=== PATIENT | male | born 1980 | race Caucasian/White ===

== ENCOUNTER → 2025-02-26 | Outpatient (CLI) | payer MEDICAID ==
--- NOTE | 2025-02-26 19:20 | MR ---
EXAMINATION TYPE: MR lumbar spine wo con DATE OF EXAM: 02/26/2025 5:46 PM COMPARISON: 10/25/2024. CLINICAL INDICATION: Male, 44 years old with history of M47.816 SPONDYLOSIS W/O MYELOPATHY; PHH, Low back pain that radiates down both legs. TECHNIQUE: Multi planar, multi sequence imaging was performed utilizing: T1-weighted, T2-weighted, a nd turbo inversion recovery imaging of the lumbar spine. IV Contrast: mL (None, if empty) FINDINGS: Alignment: The lumbar vertebral bodies have preserved heights and alignment. Cord: The conus medullaris and the distal spinal cord appear unremarkable with regards to their signa l intensity and morphology. Bones/Discs: Mild degeneration changes throughout the spine with osteophyte formation and facet joint arthropathy. Intervertebral disc signal is maintained. Reactive adjoining endplate edema at posterio r adjoining endplates of L4-L5 vertebral bodies. Stress reaction edema within the L4 and L5 pedicles. T12-L1: No evidence of significant spinal canal stenosis or neural foraminal stenosis. L1-L2: No evidence of significant spinal canal stenosis or neural foraminal stenosis. L2-L3: No evidence of significant spinal canal stenosis. Facet joint arthropathy moderate bilateral n eural foraminal stenosis. L3-L4: No evidence of significant spinal canal stenosis. Facet joint arthropathy moderate bilateral n eural foraminal stenosis. L4-L5: Central protrusion with moderate spinal canal stenosis/narrowing the ventral subarachnoid spac e. Moderate severe right and severe left neural foraminal stenosis. L5-S1: The disc has a rounded posterior morphology without significant spinal canal stenosis. Facet j oint arthropathy with mild bilateral neural foraminal stenosis. No significant spinal canal or neural foraminal stenosis in the remainder of the visualized levels. Other findings: None. IMPRESSION: 1. L4-L5 central dislocation with moderate spinal canal stenosis and severe left and moderate to sev ere right neural foraminal stenosis. Findings of this level are similar to prior on 10/25/2024 2. Mild to moderate disc degeneration with associated osteoarthritic changes. 3. Stress reaction edema within the L4 and L5 pedicles bilaterally.. [facility], , 02/26/2025 7:18 PM
--- NOTE | 2025-02-26 19:46 | CT ---
EXAMINATION TYPE: CT lumbar spine wo con DATE OF EXAM: 02/26/2025 4:42 PM COMPARISON: MRI same day. CLINICAL INDICATION: Male, 44 years old with history of M47.816 SPONDYLOSIS W/O MYELOPATHY, Lower rajat k pain. TECHNIQUE: Multiple axial images were obtained from the midportion of T11 through the sacroiliac shalonda nts. Soft tissue and bone windows in coronal and sagittal planes were obtained and reviewed. Contrast used: mL of , (None, if empty). Oral contrast used: (None, if empty). CT DLP: 858 mGycm, Automated exposure control for dose reduction was used. FINDINGS: Alignment: There are 5 lumbar type vertebral bodies with mild DEXA scoliosis apex L4.. Bone: Severe degeneration changes of the spine at L4-L5 with complete loss of disc space thickness an d endplate sclerosis. Discs: T12-L1: No spinal canal or neural foraminal stenosis is identified. L1-L2: No spinal canal or neural foraminal stenosis is identified. L2-L3: No evidence of significant spinal canal stenosis. Facet joint arthropathy moderate bilateral n eural foraminal stenosis. L3-L4: No evidence of significant spinal canal stenosis. Facet joint arthropathy moderate bilateral n eural foraminal stenosis. L4-L5: Facet joint arthropathy and disc bulging result in moderate spinal canal stenosis and moderate to severe right and severe left neural foraminal stenosis. L5-S1: Facet joint arthropathy result in mild spinal canal stenosis and mild bilateral neural foramin al stenosis. Other: Bilateral nonobstructing 5 mm calculi. Left partially obstructing ureteropelvic junction calcu edinson measuring 9 mm. Scattered colonic diverticulosis. IMPRESSION: 1. No evidence for spinal fracture. Moderate spinal canal stenosis at L4-L5 as seen on same day MRI. 2. Severe degeneration L4-L5 adjoining endplates as seen on same day MRI lumbar spine. 3. Mild left hydronephrosis secondary obstructing 9 mm calculus at the ureteropelvic junction. Addit ional mesenteric and bilateral renal calculi. 4. Colonic diverticulosis. [facility], , 02/26/2025 7:44 PM
== END | disposition home or self-care (01) ==
LOC: RADCTMAIN 16:13
PROVIDERS: ATTEND Orthopaedic Surgery
DX: M47.816 Spondylosis without myelopathy or radiculopathy, lumbar region (principal); M51.360 Other intervertebral disc degeneration, lumbar region with discogenic back pain only; M48.061 Spinal stenosis, lumbar region without neurogenic claudication; R60.0 Localized edema; N13.2 Hydronephrosis with renal and ureteral calculous obstruction; K57.30 Diverticulosis of large intestine without perforation or abscess without bleeding
CPT/HCPCS: 72131; 72148

== ENCOUNTER → 2025-05-02 | Outpatient (CLI) | payer MEDICAID | END | disposition home or self-care (01) | LOC: LABPAT 15:47 | PROVIDERS: ATTEND Orthopaedic Surgery | DX: Z01.812 Encounter for preprocedural laboratory examination (principal); Z22.322 Carrier or suspected carrier of Methicillin resistant Staphylococcus aureus; M48.062 Spinal stenosis, lumbar region with neurogenic claudication | CPT/HCPCS: 86850; 86900; 86901; 87070 ==

== ENCOUNTER 2025-05-07 07:30 | Inpatient (IN) | payer MEDICAID ==
[2025-05-03 17:45] VITALS: BMI 28.3
--- NOTE | 2025-05-07 06:52 | P.HPOR ---
History of Present Illness H&P Date: 05/02/25 .D:Date: 05/02/25 : 09:11am .T:Title: PRE OP HP Clinical Summary Brady Melendez is scheduled for an L3-5 posterolateral interbody fusion on 05/07/2025. He presents with severe pain, including sharp stabbing pain with walking and laying down, muscle spasms in his back, and radiating pain to his legs with bilateral numbness and tingling in his hips and thighs. Current medications include Lyrica, Gabapentin, and Beaver 7.5. His VAS pain score is 7. Physical examination reveals weakness in legs (4+/5 in bilateral lower extremities) and intact sensation with dermatomal deficits in L3-5, more pronounced on the left. Diagnosis includes L3-5 spondylosis with stenosis, lower extremity radiculopathy, lower extremity weakness, and low back pain. The planned procedure is an L3-5 posterolateral interbody fusion with decompression. MRSA screening and pre-operative clearance are in progress. SURGICAL RECOMMENDATION: L3-5 POSTEROLATERAL AND INTERBODY FUSION Chief Complaint Severe low back pain with lower extremity radiculopathy and weakness. 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 It was my pleasure to have seen and examined Brady Melendez. - In our visit today we have had a chance to go over subjective complaints, physical examination findings, and treatments including the natural course history without intervention and various interventional options. - The patient's imaging demonstrates the following findings: - L3-5 SPONDYLOSIS WITH STENOSIS, DISC COLLAPSE, SEVERE WITH FACET ARTHROSIS AND SEVERE DISC DISEASE. FLATTENED LL DUE TO THIS. NO FRACTURES OR LESIONS. - On a physical exam, Brady Melendez demonstrates the following findings: - Weakness in legs (4+/5 in bilateral lower extremities, all major muscle groups) - Intact sensation with dermatomal deficits in L3-5, more pronounced on the left than the right - Pain radiating into the buttock region and lower extremities I have explained to the patient that as their condition progresses it will cause further neurological deficits and eventual paralysis. Based on the patient's imaging, physical exam, and the rapid progression and disabling nature of their symptoms, at this time I recommend surgery in the form of an L3-5 posterolateral interbody fusion with decompression. I discussed the risk and benefits of this procedure at length with Brady Melendez. The patient has agreed to consider pursuing the procedure above mentioned. Prior to surgery, they should follow up with their PCP for clearance. Questions were invited and answered, and the patient wishes to proceed as outlined below. Recommendations 1. Proceed with L3-5 posterolateral interbody fusion with decompression on 05/07/2025. 2. Complete MRSA screening today. 3. Obtain pre-operative clearance and ensure it is placed in the patient's chart. 4. Continue current pain management regimen with Lyrica, Gabapentin, and Beaver 7.5 until surgery. 5. Follow up with primary care physician for surgical clearance. 6. Return for post-operative follow-up as scheduled. Risks Risks: All surgical procedures come with inherent risks, including those related to positioning, anesthesia, intraoperative findings, and postoperative complications. It is important to understand that surgery does not come with any guarantee of a successful outcome as complications and adverse events are always possible. The patient was given a handout in the office today discussing the surgical procedure and risks associated with the intervention, both of which were discussed with the patient. These risks include but are not limited to the following: - Experiencing same, different or even worse symptoms in back, neck, arms, or legs compared to before surgery. - Requiring further surgery or other forms of treatment presently or at some time in the future at same or other levels of the intended spine surgery. - On an extreme but fortunately relatively rare basis severe complications such as blindness, stroke, heart attack, temporary and/or permanent nerve injury, paralysis, coma, or may occur, sometimes without known explanation. - Surgical complications may include but are not limited to risk of infection, fluid accumulation in the surgical dissection site, including a seroma or hematoma, that requires additional surgery, wound drainage, bleeding, new numbness or weakness, vision changes/loss, spinal fluid leakage, non-healing and/or infected incision, headaches, difficulty or inability to swallow, hoarseness, hemopneumothorax, pneumothorax, impotence, retrograde ejaculation, vaginal dryness; injury to nerves, spinal cord, blood vessels, lymphatics or other vital organs (i.e., bowel injury, injury to the great vessels); heterotopic bone formation; complications related to the hardware such as screws , rods, cages including misplaced hardware, device failure, instrumentation at the wrong spine level, hardware fracture/breakage, or hardware loosening; vertebral failure of the spinal column above or below the newly placed hardware; retained surgical instrumentations or devices and the need for further surgery. - Medical risks of the planned spine surgery include but are not limited to generalized infections to the whole body or local areas outside of the surgical site (sepsis), heart attack, bleeding, anaphylaxis, meningitis, seizure, epilepsy, hearing loss, burn carrasquillo, laceration of the head or other areas of the body, bruising, hypersensitivity of the skin, bladder over distension; allergic reaction; shoulder injury related to positioning; fat, blood and air clots to other areas of the body like heart, lungs, brain; failure of internal organs such as lungs, kidneys, liver and excessive bleeding. If blood transfusions are necessary, note that transfusions may cause intolerance reactions such as anaphylaxis or other complex reactions. - Despite best efforts, the results of spine surgery might not heal in terms of bone, soft tissues such as skin, fascia, ligaments, and joints. Additionally, in order to achieve best possible results, spine surgery may be carried out beyond the initially planned levels and involve decompression, fusion including insertion of hardware at levels other than the original intended area of surgical interest change some portions of the procedure in order to ensure the best possible outcomes. - With spine surgery and spinal fusion, there are different off label uses of instrumentation (devices, implants and hardware) as well as biological substances (bone morphogenic proteins, demineralized bone matrix) as well as using extra bone from allograft sources (i.e. cadaver bone) or autograft (iliac crest bone, ribs, or the spine itself). The patient has been given information about these practices and their inherent risks and benefits. The patient has had a chance to review all the listed information, has been given print outs detailing this information, and has had all his/her questions answered to their satisfaction. It was my pleasure to have seen and examined Brady Melendez. In our visit today we have had a chance to go over my understanding of our patient's current condition, the natural course history without intervention and various interventional options. Questions were invited and answered, and the patient wishes to proceed as outlined above. I have seen and examined the patient for 25 minutes and we have spent more than 50% of the time in repeat and detailed counseling about the patient's condition, its natural course history without and as much as can be predicted with surgery and re-review of various surgical treatment options. In conclusion, Brady Melendez and their family requested we proceed with the above suggested surgery and are willing to accept risks and limitations of the suggested surgery as the nature of the disease process and our best attempts at treatment for the condition. Attestation In our visit today the patient and I have had a chance to go over my understanding of their current condition, the natural course history without intervention and various interventional options. Questions were invited and answered, and the patient wishes to proceed as outlined above. I will be sure to keep you updated after the patient returns here for further follow-up. Thank you again for your referral. Please do not hesitate to contact me if you have any further questions. Signed and authenticated by: DO Moe Almonte [facility] [address] [place] [id number] This document is confidential, intended only for the named recipient(s) and may contain information that is privileged or exempt from disclosure under applicable law. If you are not the intended recipient(s), you are notified that the dissemination, distribution or copying of this information is strictly prohibited. If you received this message in error, please notify the sender then delete this message. # SIGNED BY Salvatore Lagunas (GOO)05/04/2025 12:02PM Past Medical History Additional Past Medical History / Comment(s): BACK PAIN History of Any Multi-Drug Resistant Organisms: None Reported Additional Past Surgical History / Comment(s): DEVIATED SEPTUM X 2 Past Anesthesia/Blood Transfusion Reactions: No Reported Reaction Smoking Status: Former smoker - Past Family History Father Family Medical History: Deep Vein Thrombosis (DVT) Mother Family Medical History: Cancer Brother(s) Family Medical History: Cancer Medications and Allergies Home Medications Medication Instructions Recorded Confirmed Type Dextroamphetamine/Amphetamine 20 mg PO BID 05/03/25 05/03/25 History [Adderall Xr 20 mg Capsule] Dextroamphetamine/Amphetamine 10 mg PO DAILY@1400 05/03/25 05/03/25 History [Adderall] Escitalopram [Lexapro] 10 mg PO DAILY 05/03/25 05/03/25 History Hydrocodone/Acetaminophen 1 tab PO Q8H 05/03/25 05/03/25 History [Hydrocodone/Acetaminophen 7.5-325] Nicotine 14Mg/24Hr Patch [Habitrol 1 patch TRANSDERM DAILY 05/03/25 05/03/25 History 14Mg/24Hr Patch] Pregabalin [Lyrica] 100 mg PO TID 05/03/25 05/03/25 History Allergies Allergy/AdvReac Type Severity Reaction Status Date / Time No Known Allergies Allergy Verified 05/03/25 08:58 Physical Examination Osteopathic Statement: *. No significant issues noted on an osteopathic structural exam other than those noted in the History and Physical/Consult.
[~2025-05-07 07:30] MED LIST: LIDOCAINE 1% (10MG/ML) FOR IV START INTRADERMA PRN; TRANEXAMIC 1,000 MG/100ML-NACL 1,000 MG in SALINE 1 100ML.BAG IVPB PRN
[2025-05-07] MEDS: IV FLUID CONTINUATION 1,000 ML IV ONE ×3 (08:17→13:30)
[2025-05-07] MEDS: ONDANSETRON 4 MG/2 ML VIAL IVP PRN (08:23)
[2025-05-07] MEDS: GABAPENTIN 300 MG CAP PO PRN (08:23)
[2025-05-07] MEDS: LACTATED RINGERS 1,000 ML IV SCH (08:23)
[2025-05-07] MEDS: ACETAMINOPHEN TAB 500 MG TAB PO PRN (08:23)
[2025-05-07] MEDS: MIDAZOLAM 2 MG/2 ML VIAL IV ONE (08:29)
[2025-05-07] MEDS ORDERED: TRANEXAMIC 1,000 MG/100ML-NACL PREMIX BAG ONE (09:51)
[2025-05-07] MEDS ORDERED: NEOSTIGMINE 1 MG/ML 10 ML VIAL ONE (09:51)
[2025-05-07] MEDS ORDERED: MIDAZOLAM 2 MG/2 ML VIAL ONE (09:51)
[2025-05-07] MEDS ORDERED: KETAMINE HCL IN 0.9 % NACL 50 MG/5 ML SYRINGE ONE (09:51)
[2025-05-07] MEDS ORDERED: LIDOCAINE 1% INJ 10MG/ML (20 ML MDV) ONE (09:51)
[2025-05-07] MEDS ORDERED: GLYCOPYRROLATE 0.2 MG/ML 2 ML VIAL ONE (09:51)
[2025-05-07] MEDS ORDERED: SUCCINYLCHOLINE CHLORIDE 200 MG/10 ML VIAL IV ONE (09:51)
[2025-05-07] MEDS ORDERED: ROCURONIUM 10 MG/ML (5 ML VIAL) IV ONE (09:51)
[2025-05-07] MEDS ORDERED: fentaNYL (PF) 50 MCG/ML 2 ML AMP ONE (09:51)
[2025-05-07] MEDS ORDERED: PROPOFOL 10 MG/ML 20 ML VIAL IV ONE (09:51)
[2025-05-07] MEDS ORDERED: HYDROmorphone (PF) 1 MG/ML ONE (09:51)
[2025-05-07] MEDS: LACTATED RINGERS 1,000 ML IV ONE ×2 (10:13→11:43)
[2025-05-07] MEDS: THROMBIN (BOVINE) 5,000 UNIT VIAL TOPICAL ONE (10:14)
[2025-05-07] MEDS: VANCOMYCIN 1,000 MG VIAL MISCELLANE ONE (10:14)
--- NOTE | 2025-05-07 12:22 | XR ---
EXAMINATION TYPE: XR lumbar spine 2 or 3V, [place] guidance operating room Intraoperative/procedural fluor oscopic services were provided. CLINICAL INDICATION:Male, 44 years old with history of M48.062 LUMBAR STENOSIS; , PHH FINDINGS: Surgical changes from posterior lumbar fusion with bilateral pedicular screws and rods with intervert ebral disc fusion cages at L3-L5. Hardware appears intact with appropriate alignment on the fluorosco pic images. No radiographic evidence for complication. Total fluoroscopy time is 34.0 seconds. DAP: 10.411 Gycm2 Please see the operative/procedural note for further details. [facility], , 05/07/2025 12:20 PM
--- NOTE | 2025-05-07 12:26 | P.OP ---
Date of Procedure: 05/07/25 Preoperative Diagnosis: 1. L3-5 SPONDYLOSIS SEVERE 2. LUMBAR STENOSIS, SEVERE WITH NEUROGENIC CLAUDICATION 3. LUMBAR RADICULOPATHY BLE 4. BLE WEAKNESS 5. LOW BACK PAIN Postoperative Diagnosis: 1. L3-5 SPONDYLOSIS SEVERE 2. LUMBAR STENOSIS, SEVERE WITH NEUROGENIC CLAUDICATION 3. LUMBAR RADICULOPATHY BLE 4. BLE WEAKNESS 5. LOW BACK PAIN Procedure(s) Performed: 1. L3-4 POSTEROLATERAL AND INTERBODY FUSION 2. L4-5 POSTEROLATERAL AND INTERBODY FUSION 3. L3-5 SEGMENTAL INSTRUMENTATION 4. L3-4 AND L4-5 LAMINECTOMY, FACETECTOMY AND FORAMINOTOMY FOR COMPLETE NEURAL DECOMPRESSION, DEFORMITY CORRECTION AND CAGE PLACEMENT 5. INSERTION OF BIOMECHANICAL DEVICES CAGES x2 L3-4 AND L4-5 6. USE OF App Annie NAVIGATION FOR SCREW PLACEMENT USE OF IONM Implants: -AVELINA EVEREST RODS AND SCREWS -GLOBUS SABLE CAGES 10 MM 6-12MM LONG 8 DEG -AUTOGRAFT, CONTOUR, ALLOGRAFT, ARTHROCELL, ALLOCELL Anesthesia: DANNYA Surgeon: Salvatore Lagunas Housekeeping Associate #1: Dany Griffin (WAS PRESENT AND ASSISTED WITH ALL ASPECTS OF THE CASE FROM POSITION TO DRESSING PLACEMENT) Estimated Blood Loss (ml): 250 IV fluids (ml): 1,200 Urine output (ml): 250 Pathology: none sent Condition: stable Disposition: PACU Indications for Procedure: Brady Melendez is scheduled for an L3-5 posterolateral interbody fusion on 05/07/2025. He presents with severe pain, including sharp stabbing pain with walking and laying down, muscle spasms in his back, and radiating pain to his legs with bilateral numbness and tingling in his hips and thighs. Current medications include Lyrica, Gabapentin, and [place]ville 7.5. His VAS pain score is 7. Physical examination reveals weakness in legs (4+/5 in bilateral lower extremities) and intact sensation with dermatomal deficits in L3-5, more pronounced on the left. Diagnosis includes L3-5 spondylosis with stenosis, lower extremity radiculopathy, lower extremity weakness, and low back pain. The planned procedure is an L3-5 posterolateral interbody fusion with decompression. MRSA screening and pre-operative clearance are in progress. SURGICAL RECOMMENDATION: L3-5 POSTEROLATERAL AND INTERBODY FUSION Description of Procedure: L3-5 OPEN PLIBF The patient was seen and examined in the preoperative area. All preoperative protocols were followed. Informed consent was obtained, risks and benefits of the procedure were discussed at length. Risks including bleeding infection damage to the surrounding tissue and risk of reoperation were discussed with the patient. Risk of anesthesia up to and including was discussed with the patient. These are outlined in the risk review. They were willing to accept these risks and all the risks of surgery. The patient was given a weight-based dose of antibiotics in the form of 2 g Ancef. The patient was seen and evaluated by the anesthesia team who deemed them fit for surgery. The site was marked, the patient was willing to proceed with the procedure. The patient was transferred to the operative suite by the Department of anesthesia. They were then drifted off to sleep by the department anesthesia and GETA was performed. The patient tolerated this well. Eli catheter was placed by nursing staff, a-traumatically. Once confirmation of lines and ventilation the patient was transferred to a prone Demond table very carefully. All bony prominences including wrists, elbows, axilla, chest, hips, and thighs, and feet were padded very well. Special attention was paid to the genitalia, and these were padded accordingly. SCDs were placed on bilateral lower extremities and were connected. Arms were well padded and placed on arm boards up and out in the 90/90 position. Once in position, again we confirmed good ventilation capabilities and that lines were running appropriately. The patients Lumbar spine was then exposed. 1010s were placed outlining the incision site. Standard alcohol was used to clean the incision site and allowed to dry. C-arm was used to needle localize the pedicles at L3-5 and bio-jenni the patient and confirm level for incision which was marked with a skin marker. Operative briefing was performed with all teams and everyone in agreement to proceed. The patient was then prepped and draped in a normal sterile fashion. Timeout was then performed, and all parties agreed with the procedure to be performed. Midline skin incision was made over the previously bio-marked area and dissection taken down over the SP of L2-5. L3-4 AND L4-5 were taken out over facet joints and TPs and a penfield 4 used to jenni the L3 pedicle. Lateral image used to confirm levels. Once confirmed, screws were placed b/l at pedicles from L3-5 using Avelina navigation. Navigated Starr was used to create a forestry pilot hole, navigated awl-tap then a ball tip feeler to confirm within the pedicles. Navigated Screw was measured and placed. Once screws were placed they were confirmed to be in good position using AP and Lateral fluoroscopy. The wound was then irrigated. Screws were tested and all tested above 20 mA. We then proceeded to decompression and cage placement. Attention was then turned to interbody fusion at L4-5. Bilateral laminectomy, complete facetectomy and foraminotomy performed at L4-5 using high speed jane and Kerrison rongeur. The ligamentum was removed and the dural sac decompressed. Exiting and traversing roots visualized and decompressed. Neural elements were then protected, and disc space accessed with an osteotome. Sequential shaving then done under lateral imaging and complete discectomy per formed using rubina, pituitary and curette. Once good bleeding endplates accomplished and good height synagogue with trials, a combination of autograft, allograft and synthetic placed anterior in the disc space. The cages were then selected and impacted into place under lateral imaging bilaterally. The cages were then expanded sequentially, restoring height, lordosis and alignment. The cages were then backfilled with bone graft through a funnel. The fisher purse seine was removed and the area inspected. Good cage placement, stable cage and no injuries. The area was irrigated copiously, and meticulous hemostasis achieved. Attention was then turned to interbody fusion at L3-4. Bilateral laminectomy, complete facetectomy and foraminotomy performed at L3-4 using high speed jane and Kerrison rongeur. The ligamentum was removed and the dural sac decompressed. Exiting and traversing roots visualized and decompressed. Disc herniation was identified as extraforaminal and removed. Neural elements were then protected, and disc space accessed with an osteotome. Sequential shaving then done under lateral imaging and complete discectomy performed using rubina, pituitary and curette. Once good bleeding endplates accomplished and good height synagogue with trials, a combination of autograft, allograft and synthetic placed anterior in the disc space. The cages were then selected and impacted into place under lateral imaging bilaterally. The cages were then expanded sequentially, restoring height, lordosis and alignment. The cages were then backfilled with bone graft through a funnel. The fisher purse seine was removed and the area inspected. Good cage placement, stable cage and no injuries. The area was irrigated copiously, and meticulous hemostasis achieved. Rods were then sized and selected and placed into L5 screws b/l. Set screws locked these in place and then sequentially reduced into L4 and L3 b/l for reduction. This was accomplished. Set screws were then all placed and final tightened. TPs were then decorticated with a high speed jane. The wound was irrigated with 3L Ancef irrigation, 3L gentamicin irrigation and 3L NSS. Betadine and Irricept. Surgicel was placed over the dura. Autograft and Ventris then placed in the posterolateral gutters and impacted into place. no drain needed. 2 g Vancomycin powder placed in the wound bed. Final images confirmed good placement of hardware and good reduction of listhesis as well as synagogue of height and lordosis. Facia was then closed with #1 PDS.. Deep subq closed with 0 Vicryl. Superficial subq closed with 2-0 Vicryl and skin with skin enio. Wound edges approximated very well. The wound was then cleaned with alcohol and dried. Wounds dressed with Optifoam dressings. The patient was then transferred off the table back to their hospital bed a- traumatically. They were extubated by the department of anesthesia. They were then transferred to PACU in stable condition having tolerated the procedure with no complications.
[2025-05-07] MEDS ORDERED: ONDANSETRON 4 MG/2 ML VIAL IVP PRN (12:38)
[2025-05-07] MEDS ORDERED: MAGNESIUM HYDROXIDE 2,400 MG/30 ML CUP PO PRN (12:38)
[2025-05-07] MEDS ORDERED: HYDROmorphone 0.5 MG/0.5 ML SYRINGE IVP PRN (12:38)
[2025-05-07] MEDS ORDERED: SENNOSIDES-DOCUSATE SODIUM 1 EACH TAB PO PRN (12:38)
[2025-05-07] MEDS: HYDROmorphone 0.5 MG/0.5 ML SYRINGE IVP PRN (13:09)
[2025-05-07] MEDS: MEPERIDINE 50 MG/ML SYRINGE IVP STA ×2 (13:32→13:42)
[2025-05-07] MEDS ORDERED: MORPHINE SULFATE 2 MG/ML SYRINGE IV PRN (16:12)
[2025-05-07] MEDS: MORPHINE SULFATE 4 MG/ML SYRINGE IM STA (16:24)
[2025-05-07] MEDS: MORPHINE SULFATE 4 MG/ML SYRINGE IVP STA (16:29)
[2025-05-07] MEDS: MORPHINE SULFATE 2 MG/ML SYRINGE IM STA (16:50)
[2025-05-07] MEDS: MORPHINE SULFATE 2 MG/ML SYRINGE IVP STA (16:50)
[2025-05-07] MEDS: oxyCODONE-APAP 5-325MG 1 EACH TAB PO PRN (17:02)
[2025-05-07] MEDS: PREGABALIN 100 MG CAP PO SCH (17:07)
--- NOTE | 2025-05-07 17:43 | P.CONS ---
History of Present Illness - Reason for Consult Consult date: 05/07/25 - History of Present Illness Patient is a 44-year-old male with past medical history of ADHD, fibromyalgia, CARLENE on CPAP, Sjogren's, severe lower back pain with lower extremity radiculopathy due to L3 L5 spondylosis with stenosis, disc collapse, severe facet arthrosis, who presented for elective L3 L5 fusion that was performed on 05/07/2025, EBL 250 cc, sound physicians consulted for medical management. Patient was seen and examined after surgery, family at bedside, patient is in pain, no other new complaints, received dose of Dilaudid Vital signs showed normal heart rate in 60s, normotensive 114/78, on room air. No blood work available for review Pertinent positives and negatives as discussed in HPI, a complete review of systems was performed and all other systems are negative. Patient seen and examined at bedside. Vital signs reviewed General: nontoxic, no distress, appears at stated age Derm: warm, dry Head: atraumatic, normocephalic, symmetric Eyes: EOMI, no lid lag, anicteric sclera, pupils equal round reactive to light ENT: Nose and ears atraumatic Neck: No thyromegaly, supple Mouth: no lip lesion, mucus membranes moist Cardiovascular: S1S2 reg, no murmur, no edema Lungs: clear to auscultation bilateral, no rhonchi, no rales, no wheeze, no accessory muscle use Abdominal: soft, nontender to palpation, no guarding, no appreciable organomegaly Ext: no gross muscle atrophy, unable to assess muscle strength due to distress from pain, no contractures, Neuro: CN II-XII grossly intact Psych: Alert, oriented, appropriate affect Assessment/Plan: ADHD: Can continue Adderall 10 mg daily and Adderall 20 mg p.o. twice daily starting tomorrow, continue Lexapro 10 fibromyalgia: Continue Lexapro as above, Lyrica 100 p.o. 3 times daily CARLENE on CPAP: Continue CPAP severe lower back pain with lower extremity radiculopathy due to L3 L5 spondylosis with stenosis, disc collapse, severe facet arthrosis, s/pelective L3 L5 fusion that was performed on 05/07/2025 - Your postop management, pain management, VTE prophylaxis, bowel regimen, PT OT, incentive telemetry - CBC and BMP ordered by primary team Past Medical History Additional Past Medical History / Comment(s): BACK PAIN History of Any Multi-Drug Resistant Organisms: None Reported Additional Past Surgical History / Comment(s): DEVIATED SEPTUM X 2 Past Anesthesia/Blood Transfusion Reactions: No Reported Reaction Smoking Status: Former smoker - Past Family History Father Family Medical History: Deep Vein Thrombosis (DVT) Mother Family Medical History: Cancer Brother(s) Family Medical History: Cancer Medications and Allergies Home Medications Medication Instructions Recorded Confirmed Type Dextroamphetamine/Amphetamine 20 mg PO BID 05/03/25 05/07/25 History [Adderall Xr 20 mg Capsule] Dextroamphetamine/Amphetamine 10 mg PO DAILY@1400 05/03/25 05/07/25 History [Adderall] Escitalopram [Lexapro] 10 mg PO DAILY 05/03/25 05/07/25 History Hydrocodone/Acetaminophen 1 tab PO Q8H 05/03/25 05/07/25 History [Hydrocodone/Acetaminophen 7.5-325] Nicotine 14Mg/24Hr Patch [Habitrol 1 patch TRANSDERM DAILY 05/03/25 05/07/25 History 14Mg/24Hr Patch] Pregabalin [Lyrica] 100 mg PO TID 05/03/25 05/07/25 History Allergies Allergy/AdvReac Type Severity Reaction Status Date / Time No Known Allergies Allergy Verified 05/07/25 07:50 Physical Exam Vitals: Vital Signs Temp Pulse Resp BP Pulse Ox 05/07/25 17:24 98.1 F 58 L 18 118/72 98 05/07/25 16:25 66 18 121/66 97 05/07/25 15:55 69 16 114/78 98 05/07/25 15:25 64 12 110/68 96 05/07/25 14:55 81 18 125/75 99 05/07/25 14:25 65 15 128/68 96 05/07/25 14:10 63 13 145/92 94 L 05/07/25 13:55 64 12 145/87 94 L 05/07/25 13:40 63 16 170/76 95 05/07/25 13:25 67 22 165/101 99 05/07/25 13:10 70 22 154/85 100 05/07/25 12:55 68 18 131/74 99 05/07/25 12:40 96.5 F L 84 12 139/80 100 05/07/25 08:41 68 14 127/79 97 05/07/25 08:10 97.5 F L 76 16 112/90 99 Intake and Output 05/07/25 05/07/25 05/07/25 06:59 14:59 22:59 Intake Total 3750 Output Total 500 700 Balance 3250 -700 Intake: IV 3750 Output: Urine 250 700 Estimated Blood Loss 250 Other: Voiding Method Indwelling Catheter Weight 95.6 kg
[2025-05-07] MEDS: HYDROmorphone 1 MG/ML 1 ML SYRINGE IVP PRN (18:16)
[2025-05-07] MEDS: ACETAMINOPHEN TAB 325 MG TAB PO SCH (18:41)
[2025-05-07] MEDS: HYDROcodone/APAP 7.5-325MG 1 EACH TAB PO PRN (19:24)
[2025-05-07] MEDS: NICOTINE 21MG/24HR PATCH TRANSDERM SCH (21:20)
[2025-05-08] MEDS: CYCLOBENZAPRINE 5 MG TAB PO PRN (05:09)
--- NOTE | 2025-05-08 06:22 | CT ---
EXAMINATION TYPE: CT lumbar spine wo con DATE OF EXAM: 05/07/2025 11:48 PM COMPARISON: 02/26/2025. CLINICAL INDICATION: Male, 44 years old with history of s/p L3-L5 PLIF; [facility], s/p L3-L5 PLIF TECHNIQUE: Multiple axial images were obtained from the midportion of T11 through the sacroiliac shalonda nts. Soft tissue and bone windows in coronal and sagittal planes were obtained and reviewed. Contrast used: mL of , (None, if empty). Oral contrast used: (None, if empty). CT DLP: 1547.9 mGycm, Automated exposure control for dose reduction was used. FINDINGS: Postsurgical changes to the lumbar spine with fixation hardware at L3-L5. Discectomy at L3-L4 and L4- L5 . Hardware limits evaluation at these levels. Hardware appears intact. No evidence of fracture. Sc attered pneumorachis is noted. Left laminectomy changes are seen at these levels. Postsurgical changes in the soft tissues with foci of gas present. Drainage catheter with tubing in t he surgical bed. Posterior back skin enio are present. Scattered colonic diverticula. Eli catheter partially visualized and the bladder lumen. Left renal pelvis calculus measuring 8 mm. Scattered other renal calculi bilaterally measuring up to 4 mm. IMPRESSION: Postsurgical changes without evidence of immediate post operative complication. [facility], , 05/08/2025 6:20 AM
[2025-05-08 07:15] LABS: Basophils # (A) 0.03 X 10*3/uL (0.00-0.10); Basophils % (A) 0.2 %; Eosinophils # (A) 0.02 X 10*3/uL (0.04-0.35); Eosinophils % (A) 0.1 %; HCT 40.3 % (39.6-50.0); HGB 13.7 g/dL (13.0-17.0); Immature Grans, Automated 0.40 %; Lymphocytes # (A) 1.12 X 10*3/uL (0.90-5.00); Lymphocytes % (A) 7.8 %; MCH 31.3 pg (27.0-32.0); MCHC 34.0 g/dL (32.0-37.0); MCV 92.0 FL (80.0-97.0); Monocytes # (A) 1.06 X 10*3/uL (0.20-1.00); Monocytes % (A) 7.4 %; NRBC Per 100 WBC 0 X 10*3/uL (0.00-0.01); Neutrophils # (A) 11.98 X 10*3/uL (1.80-7.70); Neutrophils % (A) 84.1 %; Platelet Count 335 X 10*3/uL (140-440); RBC 4.38 X 10*6/uL (4.40-5.60); RDW 12.6 % (11.5-14.5); WBC 14.27 X 10*3/uL (4.50-10.00)
[2025-05-08] MEDS: DEXTROAMPHETAMINE PO SCH (07:40)
[2025-05-08] MEDS: AMPHETAMINE PO SCH (07:40)
[2025-05-08] MEDS: CYCLOBENZAPRINE 5 MG TAB PO SCH (07:45)
[2025-05-08] MEDS: HYDROcodone/APAP 10-325MG 1 EACH TAB PO SCH (07:45)
[2025-05-08] MEDS: ESCITALOPRAM 10 MG TAB PO SCH (07:45)
[2025-05-08 07:56] LABS: Anion Gap 13.00 mmol/L (4.00-12.00); BUN/Creat Ratio 11.14 Ratio (12.00-20.00); Blood Urea Nitrogen 7.8 mg/dL (9.0-27.0); Calcium 8.8 mg/dL (8.7-10.3); Carbon Dioxide 24.0 mmol/L (21.6-31.8); Chloride 102 mmol/L (96-109); Glucose 111 mg/dL (70-110); Potassium 4.2 mmol/L (3.5-5.5); Sodium 139 mmol/L (135-145)
[2025-05-08] MEDS: KETOROLAC 15 MG/ML 1 ML VIAL IVP SCH (08:04)
[2025-05-08] MEDS: SENNOSIDES-DOCUSATE SODIUM 1 EACH TAB PO SCH (08:05)
[2025-05-08] MEDS: DEXAMETHASONE SOD PHOSPHATE 10 MG/ML 1 ML VIAL IVP STA (08:05)
--- NOTE | 2025-05-08 08:41 | P.PN ---
Subjective Progress Note Date: 05/08/25 Principal diagnosis: 1. L3-L5 severe spondylosis 2. Severe lumbar stenosis with neurogenic claudication 3. Bilateral lower extremity radiculopathy with weakness 4. Mechanical low back pain Patient seen and examined this morning. Patient is in distress and crying out while laying in bed. Spouse is at bedside. Patient spouse reports that patient has been in severe pain throughout the night. Attempted physical exam, patient unable to perform due to pain and back spasms. Informed patient and spouse that medications will be adjusted. Surgical dressing to the lumbar spine, clean dry and intact. Informed patient that once we are able to get his pain under contro l that physical therapy will begin to work with him later today. Continue to encourage patient to increase his activity as tolerated and utilize incentive spirometer 10 times per hour while awake. Objective - Vital Signs Vital signs: Vital Signs Temp 98.4 F 05/08/25 01:18 Pulse 81 05/08/25 01:18 Resp 17 05/08/25 01:18 BP 135/80 05/08/25 01:18 Pulse Ox 97 05/08/25 01:18 FiO2 Intake & Output 05/07/25 05/08/25 05/08/25 18:59 06:59 18:59 Intake Total 3750 Output Total 1200 1175 Balance 2550 -1175 Weight 95.6 kg Intake: IV 3750 Output: Urine 950 1175 Estimated Blood Loss 250 Other: Voiding Method Indwelling Catheter Indwelling Catheter - Exam Physical Examination General: The patient is awake and alert, in acute distress due to pain. Skin: Skin is warm and dry with no obvious rashes or lesions. Surgical incision to the lumbar spine, dressing is clean dry and intact. Eye: Pupils are equal, round and reactive to light, extra-ocular movements are intact; there is normal conjunctiva bilaterally. Neck: The neck is supple, there is no tenderness and ROM intact. Respiratory: Respirations are non-labored. Gastrointestinal: Soft, non-distended, non-tender abdomen. Back: There is tenderness around the incision site. Musculoskeletal: ROM limited secondary to pain and stiffness from surgical procedure. Neurological: CN 2-12 intact. There are no obvious motor or sensory deficits. Movement and coordination equal and intact. Sensory exam to light touch intact C5-T1 and intact from L2-S1. Reflexes 2/4 in bilateral upper and lower extremities. Negative Hoffmans, babinski, and clonus signs. Psychiatric: Cooperative, appropriate mood & affect, normal judgment. - Labs CBC & Chem 7: 05/08/25 03:53 05/08/25 03:53 Labs: Abnormal Lab Results - Last 24 Hours (Table) 05/08/25 05/08/25 Range/Units 03:53 03:53 WBC 14.27 H (4.50-10.00) X 10*3/uL RBC 4.38 L (4.40-5.60) X 10*6/uL Immature Gran # 0.06 H (0.00-0.04) X 10*3/uL Neutrophils # 11.98 H (1.80-7.70) X 10*3/uL Monocytes # 1.06 H (0.20-1.00) X 10*3/uL Eosinophils # 0.02 L (0.04-0.35) X 10*3/uL Anion Gap 13.00 H (4.00-12.00) mmol/L BUN 7.8 L (9.0-27.0) mg/dL BUN/Creatinine Ratio 11.14 L (12.00-20.00) Ratio Glucose 111 H (70-110) mg/dL Assessment and Plan Assessment: Postop day 1: L3-L5 open posterolateral interbody fusion Plan: -Appreciate internet sales consultant and team management. -Activity: Ambulate QID, OOB all meals, up and about, limit lifting bending twisting to less than 5 lbs. Use walker or cane if needed for stability. -Daily PT/OT, increase ambulation strength and balance. -Brace when up and about, not needed in bed or chair -Pain control: Medications have been adjusted. -Meds: reviewed -GI ppx: senna, Miralax -DC horne when up and about, bedside commode if needed -DVT PPX: SCDs TEDS -Hygiene: Maintain incision clean and dry. May change dressing as needed, please document in notes if performed. Meticulous cleaning after BMs away from the incision site -Encourage IS 10x/hr -Dispo: Anticipate discharge home within the next 48hrs. *I reviewed and discussed this case with my attending Dr. Lagunas, whom has reviewed this chart and films and is in agreement with assessment and plan of care as outlined above. I have personally seen and examined the patient, performed the documentation and the assessment and plan as written. Number of minutes spent on the visit: 20m.
[2025-05-08] MEDS ORDERED: PREGABALIN 100 MG CAP PO SCH (09:00)
[2025-05-08] MEDS: PATIENT'S OWN (Dextroamphetamine/Amphetamine [Adderall] 10 MG Tablet) PO SCH (13:30)
--- NOTE | 2025-05-08 16:03 | P.PN ---
Subjective Progress Note Date: 05/08/25 Patient is a 44-year-old male with past medical history of ADHD, fibromyalgia, CARLENE on CPAP, Sjogren's, severe lower back pain with lower extremity radiculopathy due to L3 L5 spondylosis with stenosis, disc collapse, severe facet arthrosis, who presented for elective L3 L5 fusion that was performed on 05/07/2025, EBL 250 cc, sound physicians consulted for medical management. 05/08: Seen and examined at bedside, patient significant other at bedside. Patient appears to be in distress, complains of sharp constant abdominal pain in and right-sided abdomen but mostly lower abdomen, feeling like there is full and he cannot empty it, he was earlier bladder scan did not show no urine retention, he has Eli catheter in that drains clear light yellow urine. His abdomen is soft on exam, he has active bowel sounds, he tolerated breakfast without nausea or vomiting. No bowel movements yet. Vitals are unremarkable including temperature, BP, heart rate. Morning blood work showed leukocytosis 14.2, likely reactive after surgery, normal hemoglobin, normal sodium potassium, creatinine. I offered abdominal x-ray, patient currently declined as he does not want to be moved. Tablet discussed with RN, IM team to be notified should his symptoms be worsening. I recommended to recheck bladder scan and communicated with RN. Pertinent positives and negatives as discussed in HPI, a complete review of systems was performed and all other systems are negative. Patient seen and examined at bedside. Vital signs reviewed General: nontoxic, no distress, appears at stated age Derm: warm, dry Head: atraumatic, normocephalic, symmetric Eyes: EOMI, no lid lag, anicteric sclera, pupils equal round reactive to light ENT: Nose and ears atraumatic Neck: No thyromegaly, supple Mouth: no lip lesion, mucus membranes moist Cardiovascular: S1S2 reg, no murmur, no edema Lungs: clear to auscultation bilateral, no rhonchi, no rales, no wheeze, no accessory muscle use Abdominal: soft, right-sided tenderness, suprapubic tenderness, no guarding, no appreciable organomegaly Ext: no gross muscle atrophy, unable to assess muscle strength due to distress from pain, no contractures, Neuro: CN II-XII grossly intact Psych: Alert, oriented, appropriate affect Assessment/Plan: Abdominal pain -Abdominal exam as above, abdominal x-ray declined, repeat bladder scan, recommend to take Eli catheter out and use urinal instead -Notify internal medicine team for worsening symptoms -Continue bowel regimen and pain management per primary team, increase activity per primary team. Of note, patient was able to state and stand up today but physical therapy. ADHD: Can continue Adderall 10 mg daily and Adderall 20 mg p.o. twice daily starting tomorrow, continue Lexapro 10 fibromyalgia: Continue Lexapro as above, Lyrica 100 p.o. 3 times daily CARLENE on CPAP: Continue CPAP severe lower back pain with lower extremity radiculopathy due to L3 L5 spondylosis with stenosis, disc collapse, severe facet arthrosis, s/pelective L3 L5 fusion that was performed on 05/07/2025 - Your postop management, pain management, VTE prophylaxis, bowel regimen, PT OT, incentive telemetry - CBC and BMP ordered by primary team Objective - Vital Signs Vital signs: Vital Signs Temp 98.0 F 05/08/25 14:00 Pulse 70 05/08/25 14:00 Resp 16 05/08/25 14:00 BP 121/73 05/08/25 14:00 Pulse Ox 96 05/08/25 14:00 FiO2 Intake & Output 05/07/25 05/08/25 05/08/25 18:59 06:59 18:59 Intake Total 3750 200 Output Total 1200 1175 Balance 2550 -1175 200 Weight 95.6 kg Intake: IV 3750 Oral 200 Output: Urine 950 1175 Estimated Blood Loss 250 Other: Voiding Method Indwelling Catheter Indwelling Catheter Indwelling Catheter - Labs CBC & Chem 7: 05/08/25 03:53 05/08/25 03:53 Labs: Abnormal Lab Results - Last 24 Hours (Table) 05/08/25 05/08/25 Range/Units 03:53 03:53 WBC 14.27 H (4.50-10.00) X 10*3/uL RBC 4.38 L (4.40-5.60) X 10*6/uL Immature Gran # 0.06 H (0.00-0.04) X 10*3/uL Neutrophils # 11.98 H (1.80-7.70) X 10*3/uL Monocytes # 1.06 H (0.20-1.00) X 10*3/uL Eosinophils # 0.02 L (0.04-0.35) X 10*3/uL Anion Gap 13.00 H (4.00-12.00) mmol/L BUN 7.8 L (9.0-27.0) mg/dL BUN/Creatinine Ratio 11.14 L (12.00-20.00) Ratio Glucose 111 H (70-110) mg/dL
[2025-05-09 09:12] LABS: Basophils # (A) 0.02 10*3/uL (0.00-0.10); Basophils % (A) 0.1 %; Eosinophils # (A) 0.07 10*3/uL (0.04-0.35); Eosinophils % (A) 0.4 %; HCT 35.9 % (39.6-50.0); HGB 12.5 g/dL (13.0-17.0); Lymphocytes # (A) 2.27 10*3/uL (0.90-5.00); Lymphocytes % (A) 14.1 %; MCH 32.3 pg (27.0-32.0); MCHC 34.8 g/dL (32.0-37.0); MCV 92.8 fL (80.0-97.0); Monocytes # (A) 1.44 10*3/uL (0.20-1.00); Monocytes % (A) 8.9 %; Neutrophils # (A) 12.26 10*3/uL (1.80-7.70); Neutrophils % (A) 76.0 %; Platelet Count 309 10*3/uL (140-440); RBC 3.87 10*6/uL (4.40-5.60); RDW 12.6 % (11.5-14.5); WBC 16.14 10*3/uL (4.50-10.00)
[2025-05-09 09:33] LABS: African American GFR (CKD) >90 (>60 ml/min/1.73 sqM); Anion Gap 9 mmol/L; Blood Urea Nitrogen 13 mg/dL (9-20); Calcium 9.1 mg/dL (8.4-10.2); Carbon Dioxide 25 mmol/L (22-30); Chloride 103 mmol/L (98-107); Glucose 116 mg/dL (74-99); Non-African American GFR(CKD) >90 (>60 ml/min/1.73 sqM); Potassium 3.9 mmol/L (3.5-5.1); Sodium 137 mmol/L (137-145)
[2025-05-09] MEDS: LIDOCAINE 4% PATCH TOPICAL SCH (10:00)
--- NOTE | 2025-05-09 11:55 | P.PN ---
Subjective Progress Note Date: 05/09/25 Principal diagnosis: 1. L3-L5 severe spondylosis 2. Severe lumbar stenosis with neurogenic claudication 3. Bilateral lower extremity radiculopathy with weakness 4. Mechanical low back pain Patient seen and examined this morning. Patient is resting comfortably in bed. Patient states he did stand with physical therapy yesterday and tolerated activity well. He states that his pain is better managed on current regimen. Educated patient to use IV medication sparingly to assess what oral medications will manage his pain at home. Patient verbalizes understanding. Surgical incision to the lumbar spine, edges are well-approximated with enio intact. New dressing has been applied. Informed patient that physical therapy will be in to work with him today, patient does not need LSO brace to work with physical therapy. Prescription for a rolling walker and LSO brace has been placed in chart. Patient may possibly be discharged later today if his pain is contr olled. Objective - Vital Signs Vital signs: Vital Signs Temp 97.4 F L 05/09/25 07:32 Pulse 79 05/09/25 07:32 Resp 16 05/09/25 07:32 BP 113/65 05/09/25 07:32 Pulse Ox 96 05/09/25 07:32 FiO2 Intake & Output 05/08/25 05/09/25 05/09/25 18:59 06:59 18:59 Intake Total 200 Output Total 1200 300 105 Balance -1000 -300 -105 Intake: Oral 200 Output: Urine 1200 300 105 Uretheral (Horne) 105 Other: Voiding Method Indwelling Catheter Indwelling Catheter - Exam Physical Examination General: The patient is awake and alert, in acute distress due to pain. Skin: Skin is warm and dry with no obvious rashes or lesions. Surgical incision to the lumbar spine, edges are well-approximated with enio intact. New dressing has been applied. Eye: Pupils are equal, round and reactive to light, extra-ocular movements are intact; there is normal conjunctiva bilaterally. Neck: The neck is supple, there is no tenderness and ROM intact. Respiratory: Respirations are non-labored. Gastrointestinal: Soft, non-distended, non-tender abdomen. Back: There is tenderness around the incision site. Musculoskeletal: ROM limited secondary to pain and stiffness from surgical procedure. Neurological: CN 2-12 intact. There are no obvious motor or sensory deficits. Movement and coordination equal and intact. Sensory exam to light touch intact C5-T1 and intact from L2-S1. Reflexes 2/4 in bilateral upper and lower extremities. Negative Hoffmans, babinski, and clonus signs. Psychiatric: Cooperative, appropriate mood & affect, normal judgment. - Labs CBC & Chem 7: 05/09/25 08:48 05/09/25 08:48 Assessment and Plan Assessment: Postop day 2: L3-L5 open posterolateral interbody fusion Plan: -Appreciate bank consultant and team management. -Activity: Ambulate QID, OOB all meals, up and about, limit lifting bending twisting to less than 5 lbs. Use walker or cane if needed for stability. -Daily PT/OT, increase ambulation strength and balance. -Brace when up and about, not needed in bed or chair -Pain control: Medications have been adjusted. -Meds: reviewed -GI ppx: senna, Miralax -DC horne this morning. -DVT PPX: SCDs TEDS -Hygiene: Maintain incision clean and dry. May change dressing as needed, please document in notes if performed. Meticulous cleaning after BMs away from the incision site -Encourage IS 10x/hr -Dispo: Anticipate discharge home possibly later today versus tomorrow 05/10/2025. *I reviewed and discussed this case with my attending Dr. Lagunas, whom has reviewed this chart and films and is in agreement with assessment and plan of care as outlined above. I have personally seen and examined the patient, performed the documentation and the assessment and plan as written. Number of minutes spent on the visit: 20m.
--- NOTE | 2025-05-09 15:26 | P.PN ---
Subjective Progress Note Date: 05/09/25 Patient is a 44-year-old male with past medical history of ADHD, fibromyalgia, CARLENE on CPAP, Sjogren's, severe lower back pain with lower extremity radiculopathy due to L3 L5 spondylosis with stenosis, disc collapse, severe facet arthrosis, who presented for elective L3 L5 fusion that was performed on 05/07/2025, EBL 250 cc, sound physicians consulted for medical management. 05/08: Seen and examined at bedside, patient significant other at bedside. Patient appears to be in distress, complains of sharp constant abdominal pain in and right-sided abdomen but mostly lower abdomen, feeling like there is full and he cannot empty it, he was earlier bladder scan did not show no urine retention, he has Eli catheter in that drains clear light yellow urine. His abdomen is soft on exam, he has active bowel sounds, he tolerated breakfast without nausea or vomiting. No bowel movements yet. Vitals are unremarkable including temperature, BP, heart rate. Morning blood work showed leukocytosis 14.2, likely reactive after surgery, normal hemoglobin, normal sodium potassium, creatinine. I offered abdominal x-ray, patient currently declined as he does not want to be moved. Tablet discussed with RN, IM team to be notified should his symptoms be worsening. I recommended to recheck bladder scan and communicated with RN. 07/10: Patient was seen and examined at bedside, no acute events overnight, patient significant other present during exam. Patient's abdominal pain has resolved, he only complains of back pain passed out. He was sitting in the recliner, had not had a bowel movement yet, passing gas, tolerating oral diet. Patient is medically stable for discharge. Ordered follow-up blood work this morning.: Leukocytosis 16.4, hemoglobin 12.5, expected postop changes, kidney function remains normal, electrolytes WNL. Pertinent positives and negatives as discussed in HPI, a complete review of systems was performed and all other systems are negative. Patient seen and examined at bedside. Vital signs reviewed General: nontoxic, no distress, appears at stated age Derm: warm, dry Head: atraumatic, normocephalic, symmetric Eyes: EOMI, no lid lag, anicteric sclera, pupils equal round reactive to light ENT: Nose and ears atraumatic Neck: No thyromegaly, supple Mouth: no lip lesion, mucus membranes moist Cardiovascular: S1S2 reg, no murmur, no edema Lungs: clear to auscultation bilateral, no rhonchi, no rales, no wheeze, no accessory muscle use Abdominal: soft, nontender, , no guarding, no appreciable organomegaly, normal bowel sounds Ext: no gross muscle atrophy, unable to assess muscle strength due to distress from pain, no contractures, Neuro: CN II-XII grossly intact Psych: Alert, oriented, appropriate affect Assessment/Plan: Abdominal pain, resolved -Continue bowel regimen and pain management per primary team, increase activity per primary team. Of note, patient was able to state and stand up today but physical therapy. Leukocytosis, likely reactive in the postop settings Acute anemia, blood loss, expected - No signs of active bleeding, afebrile, no signs of infection ADHD: Can continue Adderall 10 mg daily and Adderall 20 mg p.o. twice daily starting tomorrow, continue Lexapro 10 fibromyalgia: Continue Lexapro as above, Lyrica 100 p.o. 3 times daily CARLENE on CPAP: Continue CPAP severe lower back pain with lower extremity radiculopathy due to L3 L5 spondylosis with stenosis, disc collapse, severe facet arthrosis, s/pelective L3 L5 fusion that was performed on 05/07/2025 - Your postop management, pain management, VTE prophylaxis, bowel regimen, PT OT, incentive telemetry ] Objective - Vital Signs Vital signs: Vital Signs Temp 97.9 F 05/09/25 13:33 Pulse 100 05/09/25 13:33 Resp 16 05/09/25 13:33 BP 103/60 05/09/25 13:33 Pulse Ox 96 05/09/25 13:33 FiO2 Intake & Output 05/08/25 05/09/25 05/09/25 18:59 06:59 18:59 Intake Total 200 180 Output Total 1200 300 355 Balance -1000 -300 -175 Intake: Oral 200 180 Output: Urine 1200 300 355 Uretheral (Eli) 105 Other: Voiding Method Indwelling Catheter Indwelling Catheter - Labs CBC & Chem 7: 05/09/25 08:48 05/09/25 08:48 Labs: Abnormal Lab Results - Last 24 Hours (Table) 05/09/25 05/09/25 Range/Units 08:48 08:48 WBC 16.14 H (4.50-10.00) 10*3/uL RBC 3.87 L (4.40-5.60) 10*6/uL Hgb 12.5 L (13.0-17.0) g/dL Hct 35.9 L (39.6-50.0) % MCH 32.3 H (27.0-32.0) pg Immature Gran # 0.08 H (0.00-0.04) 10*3/uL Neutrophils # 12.26 H (1.80-7.70) 10*3/uL Monocytes # 1.44 H (0.20-1.00) 10*3/uL Creatinine 0.65 L (0.66-1.25) mg/dL Glucose 116 H (74-99) mg/dL
[2025-05-09] MEDS ORDERED: oxyCODONE-APAP 5-325MG 1 EACH TAB PO SCH (20:00)
[2025-05-09] MEDS: oxyCODONE-APAP 7.5-325MG 1 EACH TAB PO SCH (20:26)
[2025-05-09] MEDS: CYCLOBENZAPRINE 5 MG TAB PO SCH (22:10)
--- NOTE | 2025-05-10 10:03 | P.PN ---
Subjective Progress Note Date: 05/10/25 Principal diagnosis: 1. L3-L5 severe spondylosis 2. Severe lumbar stenosis with neurogenic claudication 3. Bilateral lower extremity radiculopathy with weakness 4. Mechanical low back pain Patient seen and examined this morning. Patient is resting comfortably in bed. He does report that his pain is managed on current regimen. Surgical dressing is intact, this may be changed prior to patient discharge later today. Surgical incision is well-approximated with enio intact. There has been moderate sanguinous drainage that has been decreasing with each day. Discharge instructions have been discussed with patient and his spouse. Informed patient to utilize the after-hours line if needed. Patient states that he does feel comfortable going home. No acute concerns. Objective - Vital Signs Vital signs: Vital Signs Temp 97.8 F 05/10/25 02:01 Pulse 66 05/10/25 02:01 Resp 15 05/10/25 02:01 BP 112/70 05/10/25 02:01 Pulse Ox 98 05/10/25 02:01 FiO2 Intake & Output 05/09/25 05/10/25 05/10/25 18:59 06:59 18:59 Intake Total 1380 1620 Output Total 355 Balance 1025 1620 Intake: Oral 1380 1620 Output: Urine 355 Uretheral (Eli) 105 Other: Voiding Method Toilet Urinal # Voids 2 2 - Exam Physical Examination General: The patient is awake and alert, in acute distress due to pain. Skin: Skin is warm and dry with no obvious rashes or lesions. Surgical incision to the lumbar spine, edges are well-approximated with enio intact. Dressing is intact. Eye: Pupils are equal, round and reactive to light, extra-ocular movements are intact; there is normal conjunctiva bilaterally. Neck: The neck is supple, there is no tenderness and ROM intact. Respiratory: Respirations are non-labored. Gastrointestinal: Soft, non-distended, non-tender abdomen. Back: There is tenderness around the incision site. Musculoskeletal: ROM limited secondary to pain and stiffness from surgical procedure. Neurological: CN 2-12 intact. There are no obvious motor or sensory deficits. Movement and coordination equal and intact. Sensory exam to light touch intact C5-T1 and intact from L2-S1. Reflexes 2/4 in bilateral upper and lower extremities. Negative Hoffmans, babinski, and clonus signs. Psychiatric: Cooperative, appropriate mood & affect, normal judgment. - Labs CBC & Chem 7: 05/09/25 08:48 05/09/25 08:48 Labs: Abnormal Lab Results - Last 24 Hours (Table) 05/09/25 05/09/25 Range/Units 08:48 08:48 WBC 16.14 H (4.50-10.00) 10*3/uL RBC 3.87 L (4.40-5.60) 10*6/uL Hgb 12.5 L (13.0-17.0) g/dL Hct 35.9 L (39.6-50.0) % MCH 32.3 H (27.0-32.0) pg Immature Gran # 0.08 H (0.00-0.04) 10*3/uL Neutrophils # 12.26 H (1.80-7.70) 10*3/uL Monocytes # 1.44 H (0.20-1.00) 10*3/uL Creatinine 0.65 L (0.66-1.25) mg/dL Glucose 116 H (74-99) mg/dL Assessment and Plan Assessment: Postop day 3: L3-L5 open posterolateral interbody fusion Plan: -Appreciate database consultant and team management. -Activity: Ambulate QID, OOB all meals, up and about, limit lifting bending twisting to less than 5 lbs. Use walker or cane if needed for stability. -Daily PT/OT, increase ambulation strength and balance. -Brace when up and about, not needed in bed or chair -Pain control: Medications have been adjusted. -Meds: reviewed -GI ppx: senna, Miralax -DVT PPX: SCDs TEDS -Hygiene: Maintain incision clean and dry. May change dressing as needed, please document in notes if performed. Meticulous cleaning after BMs away from the inc ision site -Encourage IS 10x/hr -Dispo: Discharge home later today after obtaining rolling walker, please change surgical dressing prior to discharge. *I reviewed and discussed this case with my attending Dr. Lagunas, whom has reviewed this chart and films and is in agreement with assessment and plan of care as outlined above. I have personally seen and examined the patient, performed the documentation and the assessment and plan as written. Number of minutes spent on the visit: 20m.
--- NOTE | 2025-05-10 12:25 | P.PN ---
Subjective Progress Note Date: 05/10/25 Patient is a 44-year-old male with past medical history of ADHD, fibromyalgia, CARLENE on CPAP, Sjogren's, severe lower back pain with lower extremity radiculopathy due to L3 L5 spondylosis with stenosis, disc collapse, severe facet arthrosis, who presented for elective L3 L5 fusion that was performed on 05/07/2025, EBL 250 cc, sound physicians consulted for medical management. 05/08: Seen and examined at bedside, patient significant other at bedside. Patient appears to be in distress, complains of sharp constant abdominal pain in and right-sided abdomen but mostly lower abdomen, feeling like there is full and he cannot empty it, he was earlier bladder scan did not show no urine retention, he has Eli catheter in that drains clear light yellow urine. His abdomen is soft on exam, he has active bowel sounds, he tolerated breakfast without nausea or vomiting. No bowel movements yet. Vitals are unremarkable including temperature, BP, heart rate. Morning blood work showed leukocytosis 14.2, likely reactive after surgery, normal hemoglobin, normal sodium potassium, creatinine. I offered abdominal x-ray, patient currently declined as he does not want to be moved. Tablet discussed with RN, IM team to be notified should his symptoms be worsening. I recommended to recheck bladder scan and communicated with RN. 05/10: Patient was seen and examined at bedside, no acute events overnight, patient significant other present during exam. Patient's abdominal pain has resolved, he only complains of back pain .. Patient had a bowel movement today. Getting ready for discharge. Vitals are unremarkable Pertinent positives and negatives as discussed in HPI, a complete review of systems was performed and all other systems are negative. Patient seen and examined at bedside. Vital signs reviewed General: nontoxic, no distress, appears at stated age Derm: warm, dry Head: atraumatic, normocephalic, symmetric Eyes: EOMI, no lid lag, anicteric sclera, pupils equal round reactive to light ENT: Nose and ears atraumatic Neck: No thyromegaly, supple Mouth: no lip lesion, mucus membranes moist Cardiovascular: S1S2 reg, no murmur, no edema Lungs: clear to auscultation bilateral, no rhonchi, no rales, no wheeze, no accessory muscle use Abdominal: soft, nontender, , no guarding, no appreciable organomegaly, normal bowel sounds Ext: no gross muscle atrophy, unable to assess muscle strength due to distress from pain, no contractures, Neuro: CN II-XII grossly intact Psych: Alert, oriented, appropriate affect Assessment/Plan: Abdominal pain, resolved -Continue bowel regimen and pain management per primary team, increase activity per primary team. Of note, patient was able to state and stand up today but physical therapy. Leukocytosis, likely reactive in the postop settings Acute anemia, blood loss, expected - No signs of active bleeding, afebrile, no signs of infection ADHD: Can continue Adderall 10 mg daily and Adderall 20 mg p.o. twice daily starting tomorrow, continue Lexapro 10 fibromyalgia: Continue Lexapro as above, Lyrica 100 p.o. 3 times daily CARLENE on CPAP: Continue CPAP severe lower back pain with lower extremity radiculopathy due to L3 L5 spondylosis with stenosis, disc collapse, severe facet arthrosis, s/pelective L3 L5 fusion that was performed on 05/07/2025 - Your postop management, pain management, VTE prophylaxis, bowel regimen, PT OT, incentive telemetry Objective - Vital Signs Vital signs: Vital Signs Temp 98.1 F 05/10/25 07:36 Pulse 71 05/10/25 07:36 Resp 18 05/10/25 07:36 BP 129/76 05/10/25 07:36 Pulse Ox 98 05/10/25 02:01 FiO2 Intake & Output 05/09/25 05/10/25 05/10/25 18:59 06:59 18:59 Intake Total 1380 1620 Output Total 355 Balance 1025 1620 Intake: Oral 1380 1620 Output: Urine 355 Uretheral (Eli) 105 Other: Voiding Method Toilet Toilet Urinal Urinal # Voids 2 2 - Labs CBC & Chem 7: 05/09/25 08:48 05/09/25 08:48
[2025-05-10 13:38] VITALS: BP 112/69; PULSE 88; RESP 17; TEMP 98
== END 2025-05-10 14:07 | disposition home health service (06) | DRG 427 ==
LOC: 2ORMAIN 07:30 → 4SSUR 16:29
PROVIDERS: ADMIT Orthopaedic Surgery; ATTEND Orthopaedic Surgery
PROC: 0SG1071 Fusion of 2 or more Lumbar Vertebral Joints with Autologous Tissue Substitute, Posterior Approach, Posterior Column, Open Approach (ICD-10-PCS; 2025-05-07)
PROC: 01NB0ZZ Release Lumbar Nerve, Open Approach (ICD-10-PCS; 2025-05-07)
PROC: 0ST20ZZ Resection of Lumbar Vertebral Disc, Open Approach (ICD-10-PCS; 2025-05-07)
PROC: 0SG10AJ Fusion of 2 or more Lumbar Vertebral Joints with Interbody Fusion Device, Posterior Approach, Anterior Column, Open Approach (ICD-10-PCS; principal; 2025-05-07 09:15)
DX: M47.26 Other spondylosis with radiculopathy, lumbar region (principal); D62 Acute posthemorrhagic anemia; M48.062 Spinal stenosis, lumbar region with neurogenic claudication; D72.828 Other elevated white blood cell count; F90.9 Attention-deficit hyperactivity disorder, unspecified type; G47.33 Obstructive sleep apnea (adult) (pediatric); M79.7 Fibromyalgia; Z79.891 Long term (current) use of opiate analgesic; Z87.891 Personal history of nicotine dependence; Z79.899 Other long term (current) drug therapy
CPT/HCPCS: 72100; 72131; 80048; 85025

== ENCOUNTER 2025-05-13 22:05 | Emergency (ER) | payer MEDICAID ==
--- NOTE | 2025-05-13 22:23 | ED ---
Recheck HPI - General Chief Complaint: Recheck/Abnormal Lab/Rx Stated Complaint: Post op pain Time Seen by Provider: 05/13/25 22:22 Source: patient, family, RN notes reviewed, old records reviewed Mode of arrival: wheelchair Limitations: physical limitation - History of Present Illness Initial Comments: This is a 44-year-old male to the ER for evaluation of postoperative pain. Severe pain from back surgery and shortness of breath MD Complaint: medication refill request, other (Severe postoperative pain) -: days(s) Returns Today for: persistent/worsening pain related to initial visit Context: ran out of medication Associated Symptoms: none Treatments Prior to Arrival: Given Pain Meds on - Related Data Home Medications Medication Instructions Recorded Confirmed Dextroamphetamine/Amphetamine 20 mg PO BID 05/03/25 05/07/25 [Adderall Xr 20 mg Capsule] Dextroamphetamine/Amphetamine 10 mg PO DAILY@1400 05/03/25 05/07/25 [Adderall] Escitalopram [Lexapro] 10 mg PO DAILY 05/03/25 05/07/25 Hydrocodone/Acetaminophen 1 tab PO Q8H 05/03/25 05/07/25 [Hydrocodone/Acetaminophen 7.5-325] Nicotine 14Mg/24Hr Patch [Habitrol 1 patch TRANSDERM DAILY 05/03/25 05/07/25 14Mg/24Hr Patch] Pregabalin [Lyrica] 100 mg PO TID 05/03/25 05/07/25 Previous Rx's Medication Instructions Recorded Cyclobenzaprine [Flexeril] 10 mg PO TID #90 tab 05/10/25 Naproxen [Naprosyn] 500 mg PO BID #28 tablet 05/10/25 Pregabalin [Lyrica] 100 mg PO TID #90 cap 05/10/25 Sennosides/Docusate Sodium [Senna 2 each PO DAILY PRN #20 tab 05/10/25 Plus 8.6-50 mg Tablet] cefaDROXiL [Duricef] 500 mg PO Q12HR #10 cap 05/10/25 oxyCODONE-APAP 7.5-325MG [Percocet 1 tab PO Q4HR PRN #42 tab 05/10/25 7.5-325 mg] Allergies Allergy/AdvReac Type Severity Reaction Status Date / Time No Known Allergies Allergy Verified 05/13/25 22:12 Review of Systems ROS Statement: Those systems with pertinent positive or pertinent negative responses have been documented in the HPI. ROS Other: All systems not noted in ROS Statement are negative. Past Medical History Past Medical History: Asthma Additional Past Medical History / Comment(s): BACK PAIN. childhood asthma History of Any Multi-Drug Resistant Organisms: None Reported Past Surgical History: Back Surgery Additional Past Surgical History / Comment(s): DEVIATED SEPTUM X 2 Past Anesthesia/Blood Transfusion Reactions: No Reported Reaction Past Psychological History: ADD/ADHD, Anxiety, Depression Smoking Status: Former smoker Past Alcohol Use History: None Reported Past Drug Use History: Marijuana - Past Family History Father Family Medical History: Deep Vein Thrombosis (DVT) Mother Family Medical History: Cancer Brother(s) Family Medical History: Cancer General Exam Limitations: physical limitation General appearance: alert, in no apparent distress Head exam: Present: atraumatic, normocephalic, normal inspection Eye exam: Present: normal appearance, PERRL, EOMI. Absent: scleral icterus, conjunctival injection, periorbital swelling ENT exam: Present: normal exam, mucous membranes moist Neck exam: Present: normal inspection. Absent: tenderness, meningismus, lymphadenopathy Respiratory exam: Present: normal lung sounds bilaterally. Absent: respiratory distress, wheezes, rales, rhonchi, stridor Cardiovascular Exam: Present: regular rate, normal rhythm, normal heart sounds. Absent: systolic murmur, diastolic murmur, rubs, gallop, clicks GI/Abdominal exam: Present: soft, normal bowel sounds. Absent: distended, tenderness, guarding, rebound, rigid Extremities exam: Present: normal inspection, full ROM, normal capillary refill. Absent: tenderness, pedal edema, joint swelling, calf tenderness Back exam: Present: normal inspection Neurological exam: Present: alert, oriented X3, CN II-XII intact Psychiatric exam: Present: normal affect, normal mood Skin exam: Present: warm, dry, intact, normal color. Absent: rash Course Vital Signs 05/13/25 05/13/25 05/13/25 22:13 23:10 23:14 Temperature 97.8 F Pulse Rate 102 H 100 100 Respiratory 28 H Rate Blood Pressure 132/91 O2 Sat by Pulse 97 Oximetry 05/14/25 05/14/25 00:12 00:49 Temperature 98.5 F Pulse Rate 89 90 Respiratory 17 17 Rate Blood Pressure 141/89 129/79 O2 Sat by Pulse 98 96 Oximetry - Reevaluation(s) Reevaluation #1: 05/13/25 22:57 Medical records reviewed Reevaluation #4: Was pt. sent in by a medical professional or institution (, [facility], INJURY/SAFETY HAZARD ASSESSMENT, urgent care, hospital, or jail...) When possible be specific @ -no Did you speak to anyone other than the patient for history (EMS, parent, family, police, friend...)? What history was obtained from this source @ -no Did you review nursing and triage notes (agree or disagree)? Why? @ -agree Are old charts reviewed (outside hosp., previous admission, EMS record, old EKG, old radiological studies, urgent care reports/EKG's, jail records)? Report findings @ -yes Differential Diagnosis (chest pain, altered mental status, abdominal pain women, abdominal pain men, vaginal bleeding, weakness, fever, dyspnea, syncope, headache, dizziness, GI bleed, back pain, seizure, CVA, palpatations, mental health, musculoskeletal)? @ -prior EKG interpreted by me (3pts min.). @ -yes X-rays interpreted by me (1pt min.). @ -yes negative for acute disease CT interpreted by me (1pt min.). @ -no U/S interpreted by me (1pt. min.). @ -no What testing was considered but not performed or refused? (CT, X-rays, U/S, labs)? Why? @ -none What meds were considered but not given or refused? Why? @ -none Did you discuss the management of the patient with other professionals (professionals i.e. , [facility], INJURY/SAFETY HAZARD ASSESSMENT, lab, RT, psych nurse, social work professor, forestry hunter, teacher, electronic intelligence officer, rehabilitation caseworker)? Give summary @ -no Was smoking cessation discussed for >3mins.? @ -no Was critical care preformed (if so, how long)? @ -no Were there social determinants of health that impacted care today? How? (Homelessness, low income, unemployed, alcoholism, drug addiction, transportation, low edu. Level, literacy, decrease access to med. care, senior care, rehab)? @ -none Was there de-escalation of care discussed even if they declined (Discuss DNR or withdrawal of care, Hospice)? DNR status @ -no What co-morbidities impacted this encounter? (DM, HTN, Smoking, COPD, CAD, Cancer, CVA, ARF, Chemo, Hep., AIDS, mental health diagnosis, sleep apnea, morbid obesity)? @ -none Was patient admitted / discharged? Hospital course, mention meds given and route, prescriptions, significant lab abnormalities, going to OR and other pertinent info. @ - Undiagnosed new problem with uncertain prognosis? @ -no Drug Therapy requiring intensive monitoring for toxicity (Heparin, Nitro, Insulin, Cardizem)? @ -no Were any procedures done? @ -no Diagnosis/symptom? @ - Acute, or Chronic, or Acute on Chronic? @ -Acute Uncomplicated (without systemic symptoms) or Complicated (systemic symptoms)? @ -Complicated Side effects of treatment? @ -no Exacerbation, Progression, or Severe Exacerbation? @ -exacerbation Poses a threat to life or bodily function? How? (Chest pain, USA, CT, pneumonia, PE, COPD, DKA, ARF, appy, cholecystitis, CVA, Diverticulitis, Homicidal, Suicidal, threat to staff... and all critical care pts) @ -yes Reevaluation #5: Differential Back Pain: Strain, zoster, cauda equina syndrome, epidural abscess, vertebral osteomyelitis, discitis, fracture, subluxation, disc herniation, DJD, spinal stenosis, dissection, AAA, pancreatitis, peptic ulcer disease, pyelonephritis, kidney stone, this is not meant to be an all-inclusive list. Medical Decision Making - Medical Decision Making 44 male to the ER for evaluation patient [facility] for evaluation of chronic back pain postoperative back pain pain controlled here in the ER and can be discharged home - Lab Data Result diagrams: 05/13/25 22:42 05/13/25 22:42 Lab Results 05/13/25 05/13/25 05/13/25 Range/Units 22:42 22:42 22:42 WBC 7.69 (4.50-10.00) 10*3/uL RBC 4.22 L (4.40-5.60) 10*6/uL Hgb 13.4 (13.0-17.0) g/dL Hct 38.3 L (39.6-50.0) % MCV 90.8 (80.0-97.0) fL MCH 31.8 (27.0-32.0) pg MCHC 35.0 (32.0-37.0) g/dL Plt Count 439 (140-440) 10*3/uL MPV 9.0 L (9.5-12.2) fL Immature Gran % (Auto) 1.7 % Neutrophils % 57.3 % Lymphocytes % 22.8 % Monocytes % 8.8 % Eosinophils % 8.2 % Basophils % 1.2 % Immature Gran # 0.13 H (0.00-0.04) 10*3/uL Neutrophils # 4.41 (1.80-7.70) 10*3/uL Lymphocytes # 1.75 (0.90-5.00) 10*3/uL Monocytes # 0.68 (0.20-1.00) 10*3/uL Eosinophils # 0.63 H (0.04-0.35) 10*3/uL Basophils # 0.09 (0.00-0.10) 10*3/uL PT 10.1 (10.0-12.5) sec INR 0.9 (<1.2) APTT 26.0 (22.0-30.0) sec Sodium 139 (137-145) mmol/L Potassium 4.6 (3.5-5.1) mmol/L Chloride 103 (98-107) mmol/L Carbon Dioxide 24 (22-30) mmol/L Anion Gap 12 mmol/L BUN 16 (9-20) mg/dL Creatinine 0.65 L (0.66-1.25) mg/dL Est GFR (CKD-EPI)AfAm >90 (>60 ml/min/1.73 sqM) Est GFR (CKD-EPI)NonAf >90 (>60 ml/min/1.73 sqM) Glucose 91 (74-99) mg/dL Plasma Lactic Acid Harshal (0.7-2.0) mmol/L Calcium 9.7 (8.4-10.2) mg/dL Phosphorus 3.8 (2.5-4.5) mg/dL Magnesium 2.1 (1.6-2.3) mg/dL Total Bilirubin 0.3 (0.2-1.3) mg/dL AST 26 (17-59) U/L ALT 28 (4-49) U/L Alkaline Phosphatase 61 (38-126) U/L Troponin I (0.000-0.034) ng/mL NT-Pro-B Natriuret Pep 70 pg/mL Total Protein 7.0 (6.3-8.2) g/dL Albumin 4.1 (3.5-5.0) g/dL Urine Color Urine Appearance (Clear) Urine pH (5.0-8.0) Ur Specific Pine (1.001-1.035) Urine Protein (Negative) Urine Glucose (UA) (Negative) Urine Ketones (Negative) Urine Blood (Negative) Urine Nitrite (Negative) Urine Bilirubin (Negative) Urine Urobilinogen (<2.0) mg/dL Ur Leukocyte Esterase (Negative) Urine RBC (0-5) /hpf Urine WBC (0-5) /hpf Urine Bacteria (None) /hpf Urine Mucus (None) /hpf 05/13/25 05/13/25 05/13/25 Range/Units 22:42 22:42 22:49 WBC (4.50-10.00) 10*3/uL RBC (4.40-5.60) 10*6/uL Hgb (13.0-17.0) g/dL Hct (39.6-50.0) % MCV (80.0-97.0) fL MCH (27.0-32.0) pg MCHC (32.0-37.0) g/dL Plt Count (140-440) 10*3/uL MPV (9.5-12.2) fL Immature Gran % (Auto) % Neutrophils % % Lymphocytes % % Monocytes % % Eosinophils % % Basophils % % Immature Gran # (0.00-0.04) 10*3/uL Neutrophils # (1.80-7.70) 10*3/uL Lymphocytes # (0.90-5.00) 10*3/uL Monocytes # (0.20-1.00) 10*3/uL Eosinophils # (0.04-0.35) 10*3/uL Basophils # (0.00-0.10) 10*3/uL PT (10.0-12.5) sec INR (<1.2) APTT (22.0-30.0) sec Sodium (137-145) mmol/L Potassium (3.5-5.1) mmol/L Chloride (98-107) mmol/L Carbon Dioxide (22-30) mmol/L Anion Gap mmol/L BUN (9-20) mg/dL Creatinine (0.66-1.25) mg/dL Est GFR (CKD-EPI)AfAm (>60 ml/min/1.73 sqM) Est GFR (CKD-EPI)NonAf (>60 ml/min/1.73 sqM) Glucose (74-99) mg/dL Plasma Lactic Acid Harshal 1.1 (0.7-2.0) mmol/L Calcium (8.4-10.2) mg/dL Phosphorus (2.5-4.5) mg/dL Magnesium (1.6-2.3) mg/dL Total Bilirubin (0.2-1.3) mg/dL AST (17-59) U/L ALT (4-49) U/L Alkaline Phosphatase (38-126) U/L Troponin I <0.012 (0.000-0.034) ng/mL NT-Pro-B Natriuret Pep pg/mL Total Protein (6.3-8.2) g/dL Albumin (3.5-5.0) g/dL Urine Color Colorless Urine Appearance Clear (Clear) Urine pH 7.0 (5.0-8.0) Ur Specific Pine 1.019 (1.001-1.035) Urine Protein Negative (Negative) Urine Glucose (UA) Negative (Negative) Urine Ketones Negative (Negative) Urine Blood Trace H (Negative) Urine Nitrite Negative (Negative) Urine Bilirubin Negative (Negative) Urine Urobilinogen <2.0 (<2.0) mg/dL Ur Leukocyte Esterase Negative (Negative) Urine RBC 24 H (0-5) /hpf Urine WBC 1 (0-5) /hpf Urine Bacteria Rare H (None) /hpf Urine Mucus Rare H (None) /hpf - EKG Data -: EKG Interpreted by Me (EKG is sinus tachycardia 102 HI 147 QRS 76 QTc 376) Disposition Clinical Impression: Postoperative pain Disposition: HOME SELF-CARE Condition: Fair Instructions (If sedation given, give patient instructions): Pain Management After Surgery (DC) Is patient prescribed a controlled substance at d/c from ED?: No Referrals: Betty Mendez DO [Primary Care Provider] - 1-2 days Salvatore Lagunas DO [Doctor of Osteopathic Medicine] - 1-2 days Time of Disposition: 00:20
[2025-05-13] MEDS: HYDROmorphone 1 MG/ML 1 ML SYRINGE IVP STA ×2 (22:45→23:27)
[2025-05-13 22:46] LABS: Basophils # (A) 0.09 10*3/uL (0.00-0.10); Basophils % (A) 1.2 %; Eosinophils # (A) 0.63 10*3/uL (0.04-0.35); Eosinophils % (A) 8.2 %; HCT 38.3 % (39.6-50.0); HGB 13.4 g/dL (13.0-17.0); Lymphocytes # (A) 1.75 10*3/uL (0.90-5.00); Lymphocytes % (A) 22.8 %; MCH 31.8 pg (27.0-32.0); MCHC 35.0 g/dL (32.0-37.0); MCV 90.8 fL (80.0-97.0); Monocytes # (A) 0.68 10*3/uL (0.20-1.00); Monocytes % (A) 8.8 %; Neutrophils # (A) 4.41 10*3/uL (1.80-7.70); Neutrophils % (A) 57.3 %; Platelet Count 439 10*3/uL (140-440); RBC 4.22 10*6/uL (4.40-5.60); RDW 11.9 % (11.5-14.5); WBC 7.69 10*3/uL (4.50-10.00)
[2025-05-13] MEDS: SODIUM CHLORIDE 0.9% 1,000 ML IV ONE (22:49)
[2025-05-13 22:56] LABS: INR 0.9 (<1.2); Partial Thromboplastin Time 26.0 sec (22.0-30.0); Prothrombin Time 10.1 sec (10.0-12.5)
[2025-05-13 23:02] LABS: Bacteria,Urine Rare /hpf; Bilirubin,Urine Negative (Negative); Blood,Urine Trace (Negative); Color,Urine Colorless; Glucose,Urine (UA) Negative (Negative); Ketones,Urine Negative (Negative); Leukocyte Esterase,Urine Negative (Negative); Mucus,Urine Rare /hpf; Nitrite,Urine Negative (Negative); PH, Urine 7.0 (5.0-8.0); Protein,Urine Negative (Negative); RBC,Urine 24 /hpf (0-5); Specific Gravity,Urine 1.019 (1.001-1.035); Urobilinogen,Urine <2.0 mg/dL (<2.0); WBC,Urine 1 /hpf (0-5)
[2025-05-13] MEDS: IPRATROPIUM-ALBUTEROL 3 ML NEB INHALATION STA (23:08)
[2025-05-13 23:16] LABS: ALT 28 U/L (4-49); AST 26 U/L (17-59); African American GFR (CKD) >90 (>60 ml/min/1.73 sqM); Albumin 4.1 g/dL (3.5-5.0); Alkaline Phosphatase 61 U/L (38-126); Anion Gap 12 mmol/L; Blood Urea Nitrogen 16 mg/dL (9-20); Calcium 9.7 mg/dL (8.4-10.2); Carbon Dioxide 24 mmol/L (22-30); Chloride 103 mmol/L (98-107); Glucose 91 mg/dL (74-99); Magnesium 2.1 mg/dL (1.6-2.3); Non-African American GFR(CKD) >90 (>60 ml/min/1.73 sqM); Potassium 4.6 mmol/L (3.5-5.1); Sodium 139 mmol/L (137-145); Total Protein 7.0 g/dL (6.3-8.2)
[2025-05-13] MEDS: diphenhydrAMINE 50 MG/ML 1 ML VIAL IVP STA (23:22)
[2025-05-13 23:23] LABS: NT-Pro-B-Type Natriuretic Pept 70 pg/mL
[2025-05-14] MEDS: KETOROLAC 15 MG/ML 1 ML VIAL IVP STA (00:10)
[2025-05-14 00:15] VITALS: RESP 17
[2025-05-14 00:52] VITALS: BP 129/79; PULSE 90; TEMP 98.5
== END 2025-05-14 01:09 | disposition home or self-care (01) ==
LOC: EC 22:05
DX: G89.18 Other acute postprocedural pain (principal); Z87.891 Personal history of nicotine dependence
CPT/HCPCS: 36415; 94640; 93005; 83880; 80053; 83605; 83735; 84100; 84484; 85025; 85610; 85730; 81001; 99284; 96374; 96375 ×2; 96376; 96361; J1200; J1171